=== PATIENT | female | born 2000 ===

== ENCOUNTER → 2021-09-26 | Outpatient (CLI) | payer BC ==
[2021-09-26 12:25] LABS: BASO % 0 % (0-3); EOS # 0.1 x10^3/uL (0.0-0.7); EOS % 1 % (0-3); HEMATOCRIT 37.5 % (36.0-47.0); HEMOGLOBIN 12.5 g/dL (12.0-15.5); LYMPH # 1.4 x10^3/uL (1.0-4.8); LYMPH % 19 % (24-48); MEAN CORPUSCULAR HEMOGLOBIN 28 pg (25-35); MEAN CORPUSCULAR HGB CONC 33 g/dL (31-37); MEAN CORPUSCULAR VOLUME 84 fL (79-100); MONO # 0.5 x10^3/uL (0.0-1.1); MONO % 6 % (0-9); NEUT # 5.4 x10^3uL (1.8-7.7); NEUT % 73 % (31-73); PLATELET COUNT 279 x10^3/uL (140-400); RED BLOOD COUNT 4.46 x10^6/uL (3.50-5.40); RED CELL DISTRIBUTION WIDTH 12.9 % (11.5-14.5); WHITE BLOOD COUNT 7.4 x10^3/uL (4.0-11.0)
--- NOTE | 2021-09-26 16:22 | RAD ---
US OB <14 WKS History: ENCONTER FOR SUPERERVISION OF NORMAL FIRST TRI IUP Comparison: None. Technique: Sonographic examination of the pelvis was performed with transabdominal and transvaginal t echnique. Findings: The uterus is normal in size and echogenicity, measuring 9.7 x 5.7 x 6.9 cm. The uterus contains a single gestational sac with normal shape. A pole is identified with crown -rump length measuring 1.81 cm, corresponding to a gestational age of 8 weeks 2 days. There is no evidence of perigestational hemorrhage. The heart rate measures 171 bpm. The right ovary is normal in size and echogenicity, measuring 4.1 x 2.4 x 2.9 cm. The left ovary is normal in size and echogenicity, measuring 2.6 x 2.9 x 2.0 cm. There is no evidence of adnexal mass or free fluid. Impression: 1. No evidence of acute pelvic pathology. 2. Single live intrauterine gestation with crown-rump length corresponding to a gestational age of 8 weeks 2 days. Electronically signed by: Jaret España MD (09/26/2021 4:19 PM) [id number]
[2021-09-27 15:36] LABS: RUBELLA IGG ANTIBODY 2.88 index (Immune >0.99)
== END ==
LOC: US 10:14
PROVIDERS: ATTEND Obstetrics & Gynecology
DX: Z34.91 Encounter for supervision of normal pregnancy, unspecified, first trimester (principal)
CPT/HCPCS: 36415; 76801; 85025; 85660; 86592; 86703; 86762; 86787; 86803; 86850; 86900; 86901; 87340